=== PATIENT | female | born 1985 | race African-American/Black ===

== ENCOUNTER 2019-11-03 08:10 | Inpatient (IN) ==
--- NOTE | 2019-11-03 08:14 | History & Physical Report ---
Date of Service November 03, 2019 Assessment & Plan (1) Elective induction of labor planned: 33 yo F Hx GDM this here for elective induction of labor with EDC 11/05. With no complaints today. - Augment with Pitocin. - Labor plan includes epidural before AROM. - Category 1 tracing. - Expect . (2) Diet controlled gestational diabetes mellitus (GDM), antepartum: - Pt was diet controlled this . - Do not anticipate need for insulin. Pt currently NPO for IOL; will monitor BSG intermittently. History of Present Illness Primary Care Provider: NO PCP Makenna is a 33 yo F ; EDC 11/06/19 at 39+ weeks; here for elective induction; complications with GDM, diet controlled this . Received care by [facility]. Denies contractions, confirms movement; denies gush of fluid or vaginal bleeding. Labor plan includes epidural before AROM. Intends to try following delivery. GDM this diet controlled, followed with social media campaign manager; AC on 10/09/19 was 21%. For prior Hx of oligohydramnios had DVP 10/30/19 that was 6cm. Labs (04/20/19; 11/03/19): Blood type: A+ Antibody screen: negative Hgb: 11.7 Hct: 34.3% WBC: 11.75 Plt: 192 Rubella status: immune VDLR/RPR: NR Gonorrhea: negative Chlamydia: negative HIV: negative GBS: negative HbSAg: negative Glucose tolerance test: failed and followed with social media campaign manager with diet control of GDM OB Hx: Hx of induction at 38 weeks for oligohydramnios (had had fluid leakage for 2 days prior so possible this was ROM and not oligo). 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 Allergies Allergy/AdvReac Type Severity Reaction Status Date / Time No Known Allergies Allergy Verified 11/03/19 09:01 Home Medications Home Medications Medication Instructions Recorded Confirmed Type prenat.vits,mel,[id number] 1 tab PO DAILY 04/17/19 11/03/19 History acetone (urine) test #50 ea 09/25/19 11/02/19 Rx blood sugar diagnostic #120 ea 09/25/19 11/02/19 Rx blood-glucose meter #1 ea 09/25/19 11/02/19 Rx lancets #102 ea 09/25/19 11/02/19 Rx Patient History Medical History (Updated 11/03/19 @ 11:39 by Richie Bustos MD) Acute sinusitis Asthma Gestational diabetes diet controlled Oligohydramnios Varicella vaccine Surgical History History of repair of anterior cruciate ligament History of wisdom tooth extraction Family History Grandmother Ovarian cancer Mother Breast cancer Diabetes Aunt Diabetes Uncle Diabetes Father Hypertension Social History Preferred Language: Eritrean Stallion Manager Required: No Beliefs That Will Affect Care: None marital status: marital status details: Tatyana Pimentel (31) [phone] Current Living Situation: Spouse Current Living Situation Comment: lives with son and current occupational status: employed 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 @ [employer] Other Information That Helps Us Care for You: No Feels Safe at Home: Yes Safety Concerns: Feels Safe At This Time Smoking Status: Never smoker Hx Alcohol Use: No Hx Substance Use: No Review of Systems Constitutional: denies fever, chills, sweats, headache Respiratory: denies SOB, difficulty breathing Cardiac: denies CP, chest palpitations, chest pressure Breast: denies breast pain : denies dysuria Physical Exam Physical Exam: General: patient is alert and oriented, in NAD Cardiac: +S1/S2, no murmurs rubs or gallops Respiratory: lungs CTA b/l, anteriorly and posteriorly, no wheezes rales or rhonchi, no increased work of breathing, symmetric chest rise, no respiratory distress Abdomen: Gravid, fundal height is term, + FHTs, baby is presenting vertex, no palpable contractions, EFW 6.5-7.5 lbs Uterus: uterine fundus firm Lower Extremities: no LE edema or swelling, no deep calf pain, Leo's sign negative b/l Genitourinary: Manual OB Exam: + cervical dilation 2 cm, + cervical effacement 60% and + station -2 OB Exam Monitor Tracing: + external FHT monitor used, + external uterine monitor used, + category I and + normal FHT variability Results & Data Laboratory Results Laboratory Results - last 24 hr 11/03/19 11/03/19 08:33 08:33 WBC 11.75 H RBC 3.85 L Hgb 11.7 L Hct 34.3 L MCV 89.1 MCH 30.4 MCHC Pending RDW Std Deviation 42.1 RDW Coeff of Alicia 13.1 Plt Count 192 MPV 10.2 Glucose Pending Monitoring External Monitor 140s with good variability Supervising Physician Co-Signing Physician Notes Patient seen and evaluated and agree with the above findings and plan. Will start with pitocin for induction with AROM around noon. GBS negative Coding Level of Care Code None Diagnoses Elective induction of labor planned Diet controlled gestational diabetes mellitus (GDM), antepartum O24.410 Resident Activity Tracking Resident Involvement: Resident Care Provided Care Provided: OB Delivery
[2019-11-03] MEDS ORDERED: OXYTOCIN 30 UNITS/500 ML BAG IV PRN ×3 (08:18→17:31)
[2019-11-03 08:44] LABS: Hematocrit (blood only) 34.3 % (37-47); Hemoglobin 11.7 g/dL (12.0-16.0); Mean Corpuscular Hemoglobin 30.4 pg (25-34); Mean Corpuscular Volume 89.1 fL (80-100); Mean Platelet Volume 10.2 fL (7.4-10.4); Platelet Count 192 K/uL (130-400); RDW Coefficient of Variation 13.1 % (11.5-14.5); RDW Standard Deviation 42.1 fL (36.4-46.3); Red Blood Count 3.85 M/uL (4.2-5.4); White Blood Count 11.75 K/uL (4.8-10.8)
[2019-11-03 09:00] LABS: Mean Corpuscular Hgb Conc 34.1 g/dL (32-36)
[2019-11-03] MEDS: LACTATED RINGER'S 1,000 ML IV PRN ×2 (09:15→11:58)
[2019-11-03] MEDS ORDERED: fentaNYL citrate 100 MCG/2 ML VIAL ONE (11:14)
[2019-11-03] MEDS ORDERED: BUPIVACAINE 0.25% 30 ML VIAL ONE (11:15)
[2019-11-03] MEDS ORDERED: ePHEDrine sulfate 50 MG/ML AMP ONE (11:15)
[2019-11-03] MEDS ORDERED: fentaNYL 2MCG/ML ROPIV 1.25MG/ML 100 ML BAG EPI ONE (11:15)
[2019-11-03] MEDS ORDERED: fentaNYL 2MCG/ML ROPIV 1.25MG/ML 100 ML BAG EPI PRN (11:37)
[2019-11-03] MEDS ORDERED: DiphenhydrAMINE HCL 50 MG/ML VIAL IV PRN (11:37)
[2019-11-03] MEDS ORDERED: NALOXONE HCL 0.4 MG/1 ML VIAL/CARP IV PRN (11:37)
[2019-11-03] MEDS ORDERED: ePHEDrine sulfate 50 MG/ML AMP IV PRN (11:37)
[2019-11-03] MEDS ORDERED: NALOXONE HCL 1 MG in SODIUM CHLORIDE 0.9% 1000ML 1,000 ML IV PRN (11:37)
[2019-11-03] MEDS ORDERED: ONDANSETRON INJ 2 MG/ML 2 ML VIAL IV PRN (11:37)
[2019-11-03] MEDS ORDERED: NALBUPHINE HCL INJ 10 MG/ML AMP IV PRN (11:37)
--- NOTE | 2019-11-03 11:39 | Anesthesiology Consultation ---
Date of Service November 03, 2019 Assessment & Plan Chart Review Chart Review: Patient NOT seen in Pre Admission Testing and Acceptable Risk for Labor Epidural Consults Requested none ASA ASA2 Proposed Anesthesia Anesthesia Type: Labor Epidural and CSE Risk / Benefits Reviewed With: PT / POA / Parent / Guardian, Accepts Plan and Informed Consent Obtained History Height/Weight Height: 5 ft 11 in Weight: 94.801 kg Allergies Allergy/AdvReac Type Severity Reaction Status Date / Time No Known Allergies Allergy Verified 11/03/19 09:01 Medications Home Medications Medication Instructions Recorded Confirmed Last Taken prenat.vits,mel,upn-[id number] 1 tab PO DAILY 04/17/19 11/03/19 11/02/19 21:00 acetone (urine) test #50 ea 09/25/19 11/02/19 Unknown blood sugar diagnostic #120 ea 09/25/19 11/02/19 Unknown blood-glucose meter #1 ea 09/25/19 11/02/19 Unknown lancets #102 ea 09/25/19 11/02/19 Unknown Active Medications Generic Name Dose Route Start Last Admin Trade Name Freq PRN Reason Stop Dose Admin Lactated Ringer's 1,000 mls @ 125 mls/hr 11/03/19 08:18 11/03/19 11:05 Lr IV 11/05/19 08:17 999 mls/hr .Q8H PRN Infusion L&D Protocol Protocol Oxytocin 30 units in 500 mls @ 8 mls/hr 11/03/19 08:18 11/03/19 10:45 Pitocin IV 11/05/19 08:17 0.48 units/hr .Q24H PRN 8 mls/hr Labor Induction/Augmentation Titration Protocol 0.48 UNITS/HR NPO Date Last Intake of Fluids: 11/03/19 Time Last Intake of Fluids: 10:30 Date Last Intake of Solids: 11/02/19 Time Last Intake of Solids: 21:00 Past Medical History Medical History (Updated 11/03/19 @ 11:39 by Richie Bustos MD) Acute sinusitis Asthma Gestational diabetes diet controlled Oligohydramnios Varicella vaccine Exercise / Class Metabolic Activity II 4-5 Yardwork/Stairs/Walk up hill Past Family History Family History Grandmother Ovarian cancer Mother Breast cancer Diabetes Aunt Diabetes Uncle Diabetes Father Hypertension Past Surgical History Surgical History History of repair of anterior cruciate ligament History of wisdom tooth extraction Past Anesthesia History No Hx of Anesthesia Complications and No Family Hx of Anesthesia Complications History of PONV No Hx of PONV and No Hx of Motion Sickness Social History Smoking Status: Never smoker Hx Alcohol Use: No Hx Substance Use: No substance use type: does not use Review of Systems no chest pain or sob Physical Exam Vital Signs Last Vital Signs Temp 36.8 C 11/03/19 11:13 Pulse 80 11/03/19 11:37 Resp 16 11/03/19 08:17 BP 101/58 L 11/03/19 11:04 Pulse Ox 100 11/03/19 11:37 ENMT Mouth: no TMJ abnormality Thyromental Distance: > or= 3.5 Finger Breadths Mallampati Class: II Neck normal visual inspection Respiratory normal respiratory effort Auscultation: lungs clear to auscultation bilaterally Cardiovascular Rate/Rhythm: regular rate and regular rhythm Musculoskeletal Spine: normal cervical ROM Neurologic moves all extremities Psychiatric Orientation: alert and oriented x 3 Testing Laboratory Results 11/03/19 08:33 11/03/19 08:33
--- NOTE | 2019-11-03 12:27 | Labor Progress Brief Note ---
Date of Service November 03, 2019 Subjective Reason For Note: Routine Evaluation Assessment & Plan (1) Elective induction of labor planned: 33yo at 39.4 weeks GA. eIOL. 1. Fetus: Cat 1 2. Labor: Unchanged. AROM clear. Continue pitocin 3. Vitals: WNL 4. GBS negative 5. GDM Stable (2) Diet controlled gestational diabetes mellitus (GDM), antepartum: Physical Exam Genitourinary: Manual OB Exam: + cervical dilation 2 cm, + cervical effacement 70%, + station -2 and + amniotic fluid (AROM) clear OB Exam Monitor Tracing: + external FHT monitor used, + external uterine monitor used and + category I Results & Data Vital Signs (Past 12 Hours) Vital Signs Temp Pulse Resp BP Pulse Ox 11/03/19 12:24 61 104/56 L 11/03/19 12:22 70 106/58 L 100 11/03/19 12:20 74 101/59 L 11/03/19 12:18 70 104/58 L 11/03/19 12:17 70 100 11/03/19 12:16 85 116/61 11/03/19 12:14 64 101/57 L 11/03/19 12:13 81 97/54 L 11/03/19 12:12 78 100 11/03/19 12:10 80 107/59 L 11/03/19 12:08 76 75/54 L 11/03/19 12:07 73 100 11/03/19 12:06 74 96/55 L 11/03/19 12:04 82 103/59 L 11/03/19 12:02 81 100 11/03/19 11:57 76 100 11/03/19 11:55 80 106/56 L 11/03/19 11:52 85 100 11/03/19 11:47 84 100 11/03/19 11:42 79 100 11/03/19 11:37 80 100 11/03/19 11:32 77 100 11/03/19 11:27 76 100 11/03/19 11:22 81 100 11/03/19 11:17 76 100 11/03/19 11:13 36.8 C 11/03/19 11:12 78 100 11/03/19 11:04 77 101/58 L 11/03/19 10:15 81 118/66 11/03/19 09:16 85 108/66 11/03/19 08:17 36.6 C 84 16 114/63 Coding Level of Care Code None Diagnoses Elective induction of labor planned Diet controlled gestational diabetes mellitus (GDM), antepartum O24.410
[2019-11-03] MEDS ORDERED: SUPERCREAM 0.870% 15 GM JAR EXT PRN (17:31)
[2019-11-03] MEDS ORDERED: ACETAMINOPHEN 325 MG TAB PO PRN (17:31)
[2019-11-03] MEDS ORDERED: HYDROCORTISONE ACETATE 25 MG SUPP PR PRN (17:31)
[2019-11-03] MEDS ORDERED: BENZOCAINE 20% AER SPR 82.5 GM CAN EXT PRN (17:31)
[2019-11-03] MEDS ORDERED: DIPHTHERIA/TETANUS/PERTUSSIS 0.5 ML SYR/VIAL IM ONE (17:31)
--- NOTE | 2019-11-03 17:49 | Anesthesia Procedure Note ---
Date of Service November 03, 2019 Anesthesia Post Epidural Note Vital Signs Vital Signs: Temp Pulse Resp BP Pulse Ox 36.5 C 75 18 107/68 100 11/03/19 16:00 11/03/19 17:37 11/03/19 17:00 11/03/19 17:37 11/03/19 17:27 Notes Mental Status: alert / awake / arousable and participated in evaluation Nausea / Vomiting: adequately controlled Pain: adequately controlled Airway Patency, RR, SpO2: stable & adequate BP & HR: stable & adequate Hydration State: stable & adequate Neuraxial Anesthesia: was administered and sensory block is resolving Anesthetic Complications: no major complications apparent and Pt Satisfied with anesthetic care Epidural: Removed without complications and With tip intact
--- NOTE | 2019-11-03 18:03 | Delivery Summary ---
DATE OF OPERATION: 11/03/2019 PROCEDURE: Normal spontaneous vaginal delivery. SURGEON: Zack Blackburn MD PREOPERATIVE DIAGNOSES: 1. Single intrauterine at term. 2. Diet-controlled gestational diabetes. POSTOPERATIVE DIAGNOSES: Same status post-delivery. ESTIMATED BLOOD LOSS: 200 mL. DRAINS: None. FLUIDS: Continuous lactated ringer. URINE OUTPUT: Not measured. COMPLICATIONS: None. FINDINGS: Viable female with weight pending, Apgars of 8 and 9 at 1 and 5 minutes respectively INDICATIONS: Makenna is a 33-year-old admitted at 39 weeks 4 days gestational age for elective induction of labor. At initial evaluation, the patient was found to be 2 cm dilated, 60% effaced, -2 station. She was started on oxytocin per regular protocol. Approximately 3-4 hours later, she underwent spontaneous rupture of membranes for clear fluid. She received an epidural for anesthesia and progressed in labor to complete-complete +2 station, at which time she felt the urge to push. She pushed for approximately 4 contractions to achieve delivery. DESCRIPTION OF PROCEDURE: The patient progressed to 10 cm dilated, 100% effaced, +2 station, pushed over intact perineum with epidural anesthesia and delivered a viable female infant, weight and Apgars as noted above. Head of the delivered in JOSE JUAN position, rest into right transverse. No nuchal cord was noted. Body and shoulders quickly followed. was noted to be vigorous soon after delivery. An extended delayed cord clamping was initiated, which allowed for greater than 3 minutes per patient request after which the cord was double clamped and cut and the remained on the maternal abdomen as it was still noted to be vigorous. Cord blood was then obtained. Attention was then turned to deliver the placenta, which was delivered intact, 3-vessel cord, gentle cord traction. On inspection of the perineum, vagina, and cervix, there was noted to be no lacerations. Sponge and instrument counts were correct at the completion of the case. I attest to the content of the Intraoperative Record and any orders documented therein. Any exception s are noted below.
[2019-11-03] MEDS: DOCUSATE SODIUM 100 MG CAP PO SCH (22:17)
[2019-11-04] MEDS: IBUPROFEN 600 MG TAB PO PRN ×2 (01:15→15:05)
[2019-11-04 06:49] LABS: Hematocrit (blood only) 33.3 % (37-47); Hemoglobin 11.3 g/dL (12.0-16.0)
--- NOTE | 2019-11-04 07:38 | Obstetrical Progress Note ---
Date of Service <Dina Molina DO - Last Filed: 11/04/19 08:14> November 04, 2019 Assessment & Plan <Dina Molina DO - Last Filed: 11/04/19 08:14> (1) Encounter for care and examination after delivery: 33 yo F PPD#1 following at 39+ weeks. Doing well this AM and without complaints. - will continue routine care. - encouraged ambulation this morning. - following discharge will require follow up with Dr. Blackburn in 6 weeks. Subjective <Dina Molina DO - Last Filed: 11/04/19 08:14> Makenna is a 33 yo female ; PPD # 1 following vaginal delivery at 39+ weeks; doing well this AM; no abdominal cramping/pain; voiding well; tolerating snacks overnight, able to ambulate minimally since delivery within the room. Review of Systems Constitutional: denies fever, chills, sweats, headache Respiratory: denies SOB, difficulty breathing Cardiac: denies CP, chest palpitations, chest pressure Breast: denies breast pain : denies dysuria Physical Exam <Dina Molina DO - Last Filed: 11/04/19 08:14> General: patient is alert and oriented, in NAD Cardiac: +S1/S2, no murmurs rubs or gallops Respiratory: lungs CTA b/l, anteriorly and posteriorly, no wheezes rales or rhonchi, no increased work of breathing, symmetric chest rise, no respiratory distress Abdomen: soft, NT, +bowel sounds Uterus: uterine fundus firm, palpable below the level of the umbilicus Lower Extremities: no LE edema or swelling, no deep calf pain, Leo's sign negative b/l Results & Data <Dina Molina DO - Last Filed: 11/04/19 08:14> Vital Signs (Past 12 Hours) Vital Signs Temp Pulse Pulse Resp BP BP Pulse Ox 11/04/19 07:00 36.6 C 76 14 98/66 L 97 11/04/19 04:55 36.4 C L 73 20 99/68 L 11/03/19 23:50 36.6 C 73 18 91/61 L 11/03/19 20:35 36.3 C L 75 16 105/66 100 11/03/19 19:57 88 119/55 L 11/03/19 19:46 77 119/56 L Laboratory Results Laboratory Results - last 24 hr 11/03/19 11/03/19 11/04/19 08:33 08:33 06:08 WBC 11.75 H RBC 3.85 L Hgb 11.7 L 11.3 L Hct 34.3 L 33.3 L MCV 89.1 MCH 30.4 MCHC 34.1 RDW Std Deviation 42.1 RDW Coeff of Alicia 13.1 Plt Count 192 MPV 10.2 Glucose 98 Medications Administered Current Medications Acetaminophen (Tylenol) 650 mg PO Q6H PRN PRN Reason: Pain/BLACK/Fever Stop: 12/03/19 17:30 Benzocaine (Dermoplast Pain Relieving [place]) 1 appln EXT PRN PRN PRN Reason: Perineal Discomfort Stop: 12/03/19 17:30 Bisacodyl (Dulcolax) 5 mg PO 2000 [facility] Stop: 11/04/19 20:01 Bisacodyl (Dulcolax) 10 mg MS DAILY PRN PRN Reason: No BM on 2nd post- day Stop: 11/05/19 23:59 Cocaine HCl (Supercream 0.870%) 1 gm EXT BID PRN PRN Reason: Hemorrhoidal Inflammation Stop: 11/17/19 17:30 Diphenhydramine HCl (Benadryl Capsule) 25 mg PO Q8 PRN PRN Reason: Itching Stop: 12/03/19 21:51 Last Admin: 11/03/19 22:17 Dose: 25 mg Documented by: Docusate Sodium (Colace) 100 mg PO DAILY@08,21 [facility] Stop: 12/03/19 20:59 Last Admin: 11/03/19 22:17 Dose: 100 mg Documented by: Hydrocortisone (Anusol Hc) 25 mg MS BID PRN PRN Reason: Hemorrhoidal Inflammation Stop: 12/03/19 17:30 Lactated Ringer's (Lr) 1,000 mls @ 125 mls/hr IV .Q8H PRN; Protocol PRN Reason: L&D Protocol Stop: 11/05/19 08:17 Last Infusion: 11/03/19 18:00 Dose: 0 mls/hr Documented by: Oxytocin (Pitocin) 30 units in 500 mls @ 333.333 mls/hr IV .Q1H30M PRN; Protocol PRN Reason: Bleeding Control Stop: 12/03/19 17:30 Ibuprofen (Motrin) 600 mg PO Q4H PRN PRN Reason: Pain/BLACK/Cramping/Fever Stop: 12/03/19 17:30 Last Admin: 11/04/19 01:15 Dose: 600 mg Documented by: Prenat Multivit/[place]/Iron/Folic Ac ( Vitamin) 1 tab PO DAILY@08 [facility] Stop: 12/04/19 07:59 <Zack Blackburn MD - Last Filed: 11/04/19 08:40> Co-Signing Physician Notes Patient seen and evaluated and agree with the above findings and plan. Routine post care Resident Activity Tracking <Dina Molina DO - Last Filed: 11/04/19 08:14> Resident Involvement: Resident Care Provided Care Provided: OB Delivery
[2019-11-04] MEDS: DOCUSATE SODIUM 100 MG CAP PO SCH ×2 (08:55→20:16)
[2019-11-04] MEDS: PRENATAL VITAMIN 1 TAB PO SCH (08:55)
[2019-11-04] MEDS ORDERED: bisacodyL 5 MG TABEC PO SCH (20:00)
[2019-11-05] MEDS ORDERED: bisacodyL 10 MG SUPP PR PRN (07:00)
--- NOTE | 2019-11-05 08:43 | Obstetrical Progress Note ---
Date of Service November 05, 2019 Assessment & Plan (1) : PPD#2 doing well. . She does report a small swelling in her left armpit area - this is approx 1cm in size, mobile, feels like a palpable lymph node. Not hot to touch, and has not had fever. She has been massaging i t, thinking it is a clogged milk duct and this has improved it somewhat. Recommend continue to monitor, and if it gets worse or continues to persist, would recommend having this reevaluated. Reviewed DC instructions. Followup in office in 6w. Subjective Ambulation: ambulating normally Voiding: no voiding problems Diet Tolerance:: regular diet Lochia:: Moderate Review of Systems All systems reviewed & are unremarkable except as noted in HPI & below Physical Exam Constitutional WD/WN, vitals as above no acute distress Respiratory normal respiratory effort Cardiovascular Rate/Rhythm: regular rate and regular rhythm Gastrointestinal (Abdomen) Inspection/Auscultation: abdomen normal to inspection; abdomen not distended Percussion/Palpation: abdomen soft Genitourinary OB Exam Abdomen: + fundal height Fundus: + firm; not tender Results & Data Vital Signs (Past 12 Hours) Vital Signs Temp Pulse Resp BP 11/04/19 23:45 36.3 C L 66 18 97/56 L
[2019-11-05] MEDS: DOCUSATE SODIUM 100 MG CAP PO SCH (09:12)
[2019-11-05] MEDS: PRENATAL VITAMIN 1 TAB PO SCH (09:12)
== END 2019-11-05 13:06 | disposition home or self-care (01) | DRG 807 ==
LOC: 4S1 08:10 → 4S2 20:07